=== PATIENT | female | born 1960 | race Caucasian/White ===

== ENCOUNTER 2016-12-11 17:13 | Emergency (ER) | payer OTHER ==
[~2016-12-11 17:13] MED LIST: ACYC200C PO; ACYC30OI TP; ALBU8.5H2 INHALATION; AMIT10TA6 PO; ASCO-294 PO; CETI10CA PO; CHOL100045 PO; DICL100G8 TP; DULO60CA61 PO; FERR325T6 PO; HYDR-3825 PO; HYDR50CA PO; IMI100 PO; KLO1T PO; LIDO700A6 TP; MULT-1018 PO; OMEP20CA11 PO; OSPE60TA2 PO; OXYC-465 PO; PROP80CA2 PO; ROB500 PO; TOPI50TA88 PO
[2016-12-11 17:18] VITALS: BP 166/104; PULSE 103; RESP 16; O2SAT 98
[2016-12-11 18:34] LABS: BASOPHILS % (AUTO) 0.9 % (0-3); EOSINOPHILS % (AUTO) 3.3 % (0-5); MONOCYTES % (AUTO) 9.1 % (4-12); Mean Corpuscular Hemoglobin 25.1 pg (27.0-35.0); Mean Corpuscular Volume 76.6 fL (81-100); NEUTROPHILS % (AUTO) 44.9 % (40-74); Platelet Count 303 bil/L (150-400)
--- NOTE | 2016-12-11 18:34 | DRSVH ---
PROCEDURE: X-RAY CHEST, TWO VIEWS ([id number]) INDICATIONS: SHORTNESS OF BREATH AND WEIGHT GAIN TECHNIQUE: 2 views of the chest were acquired. COMPARISON: [facility], , CHEST 2VW, 07/11/2011, 15:02. FINDINGS: Surgical changes and devices: None. Lungs and pleura: No pleural effusions or pneumothorax. Lungs are clear. Mediastinum: Mediastinal contours are normal. Heart size is normal. Bones and chest wall: No suspicious bony abnormalities. Soft tissues appear unremarkable. IMPRESSION: No acute process. Dictated by: Destiney Bermudez M.D. on 12/11/2016 at 18:32 Approved by: Destiney Bermudez M.D. on 12/11/2016 at 18:32
--- NOTE | 2016-12-11 18:42 | ED.REPORT ---
HPI-General Illness Date of Service Dec 11, 2016 ED Provider: Kwan Malone MD A 56 year old female with a history of hypertension and right foot surgery (2015) presents to the ED complaining of lower extremity edema that first appeared a few months ago. The swelling became increasingly worse over the past few weeks. Recent associated symptoms include SOB, fatigue, constipation (Last BM 2 days ago) and "50 lbs" of weight gain in her abdomen. Her SOB is exacerbated by exertion and activity. Urgent Care directed the patient to the ED for further evaluation. Patient denies any recent injuries. She denies any chest pain, headache, hematuria, hematochezia, abdominal pain, diarrhea, nausea , vomiting, fever, chills, unilateral weakness or numbness. Nursing Notes Stated Complaint: POSS PULMONARY EDEMA Chief Complaint: General Complaint Nursing Notes Reviewed: Yes Allergies: Coded Allergies: aspirin (Verified Allergy, Severe, kidney damage, 01/06/16) bupropion (Verified Allergy, Unknown, UNKNOWN, 12/30/15) citalopram (Verified Allergy, Unknown, 01/06/16) gabapentin (Verified Allergy, Unknown, 01/06/16) lisinopril (Verified Allergy, Unknown, UNKNOWN, 12/30/15) doxycycline (Verified Adverse Reaction, Severe, FLUSH & BLISTERS, 12/30/15) meperidine HCl (Verified Adverse Reaction, Severe, blackout, 08/09/15) tramadol (Verified Adverse Reaction, Severe, ITCH, 12/30/15) Uncoded Allergies: MELONS (Allergy, Severe, throat closes, 01/06/16) WALNUTS (Allergy, Severe, throat itching, 01/06/16) NSAIDS (ASA,IBUPROFEN) (Adverse Reaction, Severe, RENAL ISSUES, 12/30/15) Scheduled Acyclovir (Acyclovir) 200 Mg Capsule 200 MG PO BID Acyclovir (Zovirax) 2 Applic/Gm Oint 1 APPLIC TP 5X/DAY 5% Amitriptyline (Amitriptyline) 10 Mg Tablet 10 MG PO HS Ascorbate Calcium (Vitamin C) 500 Mg Tablet 500 MG PO DAILY Cetirizine HCl (Zyrtec) 10 Mg Capsule 10 MG PO AM Cholecalciferol (Vitamin D3) (Vitamin D) 1,000 Unit Capsule 2,000 UNIT PO DAILY Diclofenac Gel (Voltaren Gel) 100 Gm Tube 1 APPLIC TP QID 1% Duloxetine (Duloxetine) 60 Mg Capsule.dr 120 MG PO DAILY Ferrous Sulfate (Ferrous Sulfate) 325 Mg Tablet.dr 325 MG PO DAILY Hydroxyzine Pamoate (Vistaril) 50 Mg Capsule 50 MG PO QID Multivitamin (Multi Vitamin Daily) 1 Each Tablet 1 EACH PO DAILY Omeprazole (Omeprazole) 20 Mg Capsule.dr 20 MG PO DAILY Ospemifene (Osphena) 60 Mg Tablet 60 MG PO DAILY Propranolol ER (Propranolol ER) 80 Mg Cap.sa.24h 80 MG PO DAILY Sumatriptan (Imitrex) 100 Mg Tablet 100 MG PO PRN Topiramate (Topiramate) 50 Mg Tablet 50 MG PO BID Scheduled PRN Albuterol HFA (Proair HFA) 8.5 Gm Hfa.aer.ad 2 PUFFS INHALATION Q4H PRN PRN PRN Clonazepam (Clonazepam) 1 Mg Tablet 1 MG PO BID PRN PRN For Anxiety Hydrocodone-Acetaminophen 7.5-325 mg (Hydrocodone-Acetaminophen 7.5-325 mg) 1 Each Tablet 0.5-1 TABLET PO TID PRN PRN For Pain Lidocaine (Lidoderm) 700 Mg Adh..patch 1 PATCH TP DAILY PRN PRN UD 5% Methocarbamol (Methocarbamol) 500 Mg Tablet 500-1,000 MG PO TID PRN PRN PRN oxyCODONE-Acetaminophen 7.5-325 mg (oxyCODONE-Acetaminophen 7.5-325 mg) 1 Each Tablet 1 TAB PO Q6H PRN PRN For Pain POSTOP General Time Seen by MD: 18:37 Chief Complaint Other (Lower Extremity Edema) Hx Obtained From: Patient Arrived By: Walk-in Sudden in Onset?: No Onset Occurred: More than a week ago... 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) TMJ On home CPAP Headaches Recurrent UTI's Fibromyalgia Osteoarthritis Depression Anxiety Past Surgical History Tubal ligation Left eyebrow basal cell carcinoma removal Foot surgery Bilateral shoulder surgery Back surgery x Rigth knee surgery Smoking History Never Smoker Social History Alcohol Use: Denies alcohol use Drug Use: Denies drug use Other Social History: , Local resident Ambulatory Status Independent Review of Systems weight gain - 50 lbs Full Review of Systems Constitutional: Reports: Fatigue, Denies: Chills, Fever Respiratory: Reports: Shortness of breath Cardiovascular: Denies: Chest pain GI: Reports: Constipation, Denies: Abdominal pain, Diarrhea, Hematochezia, Nausea, Vomiting Female: Denies: Hematuria Neurologic: Denies: Headache, Numbness, Weakness Complete sys rev & neg: except as marked. Physical Exam Nursing note and vitals reviewed. Constitutional: Well-developed, well-nourished. Not diaphoretic. Head: Normocephalic and atraumatic. Mouth/Throat: Oropharynx is clear and moist. No oropharyngeal exudate. Eyes: EOM are normal. Pupils are equal, round, and reactive to light. Neck: Supple, no tracheal deviation. Cardiovascular: Normal rate, regular rhythm. Equal and intact distal pulses throughout. Pulmonary/Chest: Effort normal and breath sounds normal. No respiratory distress. Abdominal: Soft. No distension. There is no tenderness, rebound, or guarding. I do not appreciate any abdominal ascites. Musculoskeletal: Range of motion grossly intact, moving all extremities. No peripheral edema or tenderness appreciated. Neurological: AOx3. Grossly nonfocal exam. Strength and sensation intact and equal to bilateral upper and lower extremities. Skin: Warm and dry, no rashes or pallor appreciated. Psychiatric: Appropriate mood and affect. Behavior appears normal. Vital Signs Vital Signs Date Time Temp Pulse Resp B/P Pulse Ox O2 Delivery O2 Flow Rate FiO2 12/11/16 22:16 81 137/90 97 Room Air 12/11/16 19:20 86 18 143/92 97 Room Air 12/11/16 17:18 36.1 103 16 166/104 98 Room Air Interpretation & Diagnostics Lab Results Interpretation Result Diagram: 12/11/16182712/11/168 Test 12/11/16 18:28 White Blood Count 7.0th/mm3 (3.8-10.1) Red Blood Count 5.21mil/mm3 (3.90-5.20) Hemoglobin 13.1g/dL (12.0-15.6) Hematocrit 39.9% (35.0-46.0) Mean Corpuscular Volume 76.6fL (81-100) Mean Corpuscular Hemoglobin 25.1pg (27.0-35.0) Mean Corpuscular Hemoglobin Concent 32.8% (32.0-37.0) Red Cell Distribution Width 15.8% (12.3-15.4) Platelet Count 303bil/L (150-400) Neutrophils (%) (Auto) 44.9% (40-74) Lymphocytes (%) (Auto) 41.7% (14-46) Monocytes (%) (Auto) 9.1% (4-12) Eosinophils (%) (Auto) 3.3% (0-5) Basophils (%) (Auto) 0.9% (0-3) Sodium Level 140mEq/L (134-144) Potassium Level 4.1mEq/L (3.5-5.2) Chloride Level 105mEq/L (97-108) Carbon Dioxide Level 21mmol/L (18-29) Blood Urea Nitrogen 26mg/dL (6-24) Creatinine 0.91mg/dL (0.57-1.00) Estimat Glomerular Filtration Rate 91mL/min (>59) Glucose Level 73mg/dL (60-99) Calcium Level 9.2mg/dL (8.5-10.1) Total Bilirubin 0.2mg/dL (0.0-1.2) Aspartate Amino Transf (AST/SGOT) 16U/L (0-50) Alanine Aminotransferase (ALT/SGPT) 16U/L (0-32) Alkaline Phosphatase 73U/L (25-150) Troponin T < 0.010ug/L (0.0-0.011) Pro-B-Type Natriuretic Peptide 86.60pg/mL (0-287) Total Protein 6.9g/dL (6.4-8.4) Albumin 4.0g/dL (3.4-5.0) Hold Reaves Top Tube Received (Received) ECG Interpretation ECG Interpretation: Sinus Rhythm Rate 83 No prior for comparison Time: 17:58 Interpreted by: ED physician X-Ray Chest Interpretation Chest Xray Interpretation: IMPRESSION: No acute process. Dictated by: Destiney Bemrudez M.D. on 12/11/2016 at 18:32 Interpretation / Wet Read by: Interpret - Radiologist Re-Eval/Medical Decision Med Decision/Clinical Course 56-year-old female presenting to the ED for evaluation of swelling to her entire body over the past several months, occasionally associated with some dyspnea. She is not having any chest pain whatsoever. EKG demonstrates sinus rhythm with no acute ischemic changes. Troponin negative. Chest x-ray negative for any acute process including no signs of pulmonary edema. BNP and albumin within normal limits, as are the rest of her CBC and CMP. On exam, she has no edema whatsoever, and her lungs are completely clear. I am not sure what in particular has been going on with her or if her edema has completely resolved, but I do not have a good explanation for what she states are her symptoms. She is the lowest risk by Well's criteria for PE. I discussed that she needs to follow-up with her PCP as soon as able to discuss her complaints. Given they have been going on as long as they have, I do not think she needs further workup or imaging here in the ED today. Patient was agreeable to the plan as stated, as well as the return precautions I discussed with her. No further questions. Time of Eval: 21:54 Patient Status: Condition improved Re-Evaluation/Progress Note: Symptoms have improved and the patient is informed of her reassuring results. The patient is currently expressing concern about her 's reaction to her results. Patient agrees to follow up with her PCP for further evaluation. Counseled Regarding: Diagnosis, Lab results, Need for follow-up, When/why to return to ED Discharge & Departure Primary Impression: Exertional dyspnea Disposition: Home Discharge Condition All VS Reviewed: Yes Condition: Improved Patient Instructions: Dyspnea (ED), Leg Edema (ED) Additional Instructions: Thank you for trusting us with your care this evening. Your emergency department results including examination, lab work, EKG and chest X-ray are reassuring that there is no emergent cause for concern at this time and we ruled-out any acute cause of your symptoms. However, a clear cause of your symptoms was not identified and I highly recommend that you have follow- up. Schedule a follow-up appointment with your primary care physician (or see referral the [facility]) in the next 1-2 days for a recheck.I also recommend that you schedule an outpatient cardiac stress test within the next week with your primary doctor. Please return to the emergency department for any new or worsening symptoms including any nausea, vomiting, abdominal pain, worsening shortness of breath, chest pain, worsening swelling in the lower extremities, one-sided weakness/ numbness, high fevers, or shaking chills. Referrals: Sofi Smith MD (PCP) [facility] Scribe Attestation Portions of this note were transcribed by Heather Elena. I, Dr. Malone personally performed the history, physical exam and medical decision-making; I reviewed and confirmed the accuracy of the information in the transcribed note. Signed by: Domingo Pollock, 12/11/16 2201. copies to: Sofi Smith MD, William B MD Dec 11, 2016 18:42 HEATHER ELENA Dec 11, 2016 20:39
[2016-12-11 18:53] LABS: TROPONIN T < 0.010 ug/L (0.0-0.011)
[2016-12-11 19:20] VITALS: BP 143/92; PULSE 86; RESP 18; O2SAT 97
[2016-12-11 22:16] VITALS: BP 137/90; PULSE 81; O2SAT 97
== END 2016-12-11 22:16 | disposition home or self-care (01) ==
LOC: SED 17:13
DX: R06.09 Other forms of dyspnea (principal); I10 Essential (primary) hypertension; F41.9 Anxiety disorder, unspecified; F32.9 Major depressive disorder, single episode, unspecified; Z79.82 Long term (current) use of aspirin; Z87.440 Personal history of urinary (tract) infections; Z88.8 Allergy status to other drugs, medicaments and biological substances; Z88.6 Allergy status to analgesic agent